=== PATIENT | female | born 1940 | race Asian ===

== ENCOUNTER 2016-09-08 08:12 | Inpatient (IN) | payer MEDICARE, BC ==
[~2016-09-08] VITALS: Ht 160 cm; Wt 72.6 kg
[2016-09-08 08:27] VITALS: BP 141/62
--- NOTE | 2016-09-08 08:50 | Emergency Room Report ---
History of Present Illness General Chief Complaint: Multiple Trauma/Fall Source: Patient, EMS Present Illness HPI Patient reports pain to the right hip and lower back area after fall She reports that she has Parkinson's and has falls somewhat frequently denies any loss of consciousness or dizziness and provides a fairly purely mechanical fall in nature Patient has pain with movement of the right leg in the right hip and lower back Denies any neuropathy she reports previous surgery in the right hip Denies any abdominal pain denies any neck pain or headache Allergies: Coded Allergies: No Known Allergies (Unverified , 09/08/16) Patient History Past Medical History: see triage record Pertinent Family History: none Reviewed Nursing Documentation: PMH: Agreed, PSxH: Agreed Nursing Documentation-PMH Past Medical History: No History, Except For Review of Systems All Other Systems: negative except mentioned in HPI Physical Exam Vital Signs Date Time Temp Pulse Resp B/P Pulse Ox O2 Delivery O2 Flow Rate FiO2 09/08/16 08:12 97.9 85 16 134/92 95 Room Air Sp02 EP Interpretation: reviewed, normal General Appearance: well appearing, no apparent distress Head: normocephalic, atraumatic Eyes: bilateral eye EOMI, bilateral eye PERRL ENT: hearing grossly normal, normal pharynx, TMs + canals normal, uvula midline Neck: full range of motion, supple, no meningismus, no bony tend Respiratory: lungs clear, normal breath sounds, no rhonchi, no respiratory distress, no retraction, no accessory muscle use Cardiovascular #1: normal peripheral pulses, regular rate, rhythm, no edema, no gallop, no JVD, no murmur Gastrointestinal: normal bowel sounds, non tender, soft, no mass, no organomegaly, non-distended, no guarding, no hernia, no pulsatile mass, no rebound Genitourinary: no CVA tenderness Musculoskeletal: other - 10 on palpation right posterior superior iliac crest region, lower L-spine on the right aspect, tender with movement of the right leg in a flexion movement Neurologic: oriented x3, responsive, sensory intact Psychiatric: mood/affect normal Skin: normal color, no rash, warm/dry, palpation normal Lymphatic: normal inspection, no adenopathy Medical Decision Making Diagnostic Impression: Primary Impression: Thoracic spine fracture Additional Impressions: Fracture of lumbar spine Rib fracture ER Course Given the patient's presentation and pain seeking she was obtained presents with a report for full specifics however there are several acute fractures no thoracic and lumbar spine region also a right-sided rib fracture Patient require further IV pain medication Orthopedics was consulted and patient requiring further inpatient care Labs Test 09/08/16 11:12 White Blood Count 6.4 K/UL (4.8-10.8) Red Blood Count 4.63 M/UL (4.20-5.40) Hemoglobin 14.5 G/DL (12.0-16.0) Hematocrit 45.3 % (37.0-47.0) Mean Corpuscular Volume 98 FL (80-99) Mean Corpuscular Hemoglobin 31.3 PG (27.0-31.0) Mean Corpuscular Hemoglobin Concent 32.0 G/DL (32.0-36.0) Red Cell Distribution Width 12.3 % (11.6-14.8) Platelet Count 294 K/UL (150-450) Mean Platelet Volume 6.0 FL (6.5-10.1) Neutrophils (%) (Auto) 65.8 % (45.0-75.0) Lymphocytes (%) (Auto) 25.5 % (20.0-45.0) Monocytes (%) (Auto) 6.2 % (1.0-10.0) Eosinophils (%) (Auto) 1.9 % (0.0-3.0) Basophils (%) (Auto) 0.7 % (0.0-2.0) Prothrombin Time 9.9 SEC (9.30-11.50) Prothromb Time International Ratio 1.0 (0.9-1.1) Activated Partial Thromboplast Time 26 SEC (23-33) Sodium Level 142 mEQ/L (135-145) Potassium Level 4.0 mEQ/L (3.4-4.9) Chloride Level 99 mEQ/L (98-107) Carbon Dioxide Level 27 mEQ/L (20-30) Anion Gap 16 (5-15) Blood Urea Nitrogen 15 mg/dL (7-23) Creatinine 0.7 mg/dL (0.5-0.9) Estimat Glomerular Filtration Rate mL/min (>60) Glucose Level 121 mg/dL (74-106) Calcium Level 9.0 mg/dL (8.6-10.2) Total Bilirubin < 0.2 mg/dL (0.0-1.2) Aspartate Amino Transf (AST/SGOT) 16 U/L (5-40) Alanine Aminotransferase (ALT/SGPT) 5 U/L (3-33) Alkaline Phosphatase 57 U/L (35-104) Total Creatine Kinase 123 U/L (26-140) Creatine Kinase MB 3.6 ng/mL (< 3.8) Creatine Kinase MB Relative Index 2.9 Troponin I < 0.30 ng/mL (<=0.30) Total Protein 6.3 g/dL (6.6-8.7) Albumin 4.1 g/dL (3.5-5.2) Globulin 2.2 g/dL Albumin/Globulin Ratio 1.8 (1.0-2.7) Rhythm Strip Diag. 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 No evidence of significant neural compromise CT pelvic: refer to L. spine Last Vital Signs Date Time Temp Pulse Resp B/P Pulse Ox O2 Delivery O2 Flow Rate FiO2 09/08/16 08:27 98.2 80 22 141/62 97 Room Air Status: improved Disposition: ADMITTED INPATIENT Condition: Improved Referrals: NOT CHOSEN IPA/,REFERRING (PCP) SKYLER HUERTA D.O. Sep 08, 2016 08:50
[2016-09-08] MEDS ORDERED: traMADol 50mg tab ORAL ONE (09:00)
--- NOTE | 2016-09-08 10:03 | Diagnostic Imaging Report ---
Indications: Pain to the right hip and lower back area of Technique: Spiral acquisitions obtained through the lumbar spine. Multiplanar reconstructions were generated. No IV contrast utilized. Total dose length product 413 mGycm. CTDIvol(s) 50 mGy Comparison: Findings: There is a nondisplaced fracture of the right 12th rib. This appears acute. There are fractures of the right transverse processes of T12, L1, L2, and L3. The L1 and L2 fractures appear to be acute. The T12 and L3 fractures are likely acute but could be older. No other acute fractures are demonstrated. There is slight anterior offset of L4 on L5 and of L5 on S1. No associated pars defect. There is an S-shaped scoliotic deformity of the lumbar spine. The remaining bony alignment is normal. The vertebral body heights are preserved. The sacrum is intact. There are old distracted ununited fractures of the left L2, L3, L4, and L5 transverse processes. At T12-L1, no significant disc narrowing, disc bulge or protrusion, spinal stenosis, or neural foraminal stenosis is demonstrated. At L1-2, there is degenerative disc narrowing with vacuum formation and subchondral cysts. No significant disc bulge or protrusion, spinal stenosis, or neural foraminal stenosis. There is bilateral facet degeneration. At L2-3, there is degenerative disc narrowing with vacuum formation. There is bilateral facet degeneration. No significant disc bulge or protrusion, spinal stenosis, or neural foraminal stenosis. At L3-4, there is degenerative disc narrowing with vacuum formation. There is posterior disc old/osteophyte complex, which does not significantly narrow the spinal canal, but does result in mild narrowing of the left neural foramen. There is severe degenerative facet disease, particularly on the left. 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 No significant disc bulge or protrusion, spinal stenosis, or neural foraminal narrowing. There is severe bilateral facet degeneration, and, as at the level above, kissing spinous processes. At L5-S1, only minimal disc narrowing. No significant disc bulge or protrusion, spinal stenosis, or neural foraminal narrowing. There is bilateral severe facet degeneration. 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 No evidence of significant neural compromise The CT scanner at [facility] is accredited by the [employer] and the scans are performed using protocols designed to limit radiation exposure to as low as reasonably achievable to attain images of sufficient resolution adequate for diagnostic evaluation.
[2016-09-08] MEDS ORDERED: Diazepam 10mg/2ml Inj IM ONE (10:15)
[2016-09-08] MEDS ORDERED: Ketorolac 30mg Inj IV ONE (11:15)
--- NOTE | 2016-09-08 11:41 | Diagnostic Imaging Report ---
Indication: Chest pain Technique: One view of the chest Comparison: 04/28/2008 Findings: Again demonstrated is a surgical clips and a surgical staple line in the left hilar region. The lungs and pleural spaces are clear. Heart size is upper limits of normal. There is thoracic scoliotic deformity again demonstrated. Impression: Findings as noted. No acute process
[2016-09-08 11:44] VITALS: BP 122/67
[2016-09-08 12:10] LABS: BASOPHILS % (AUTO) 0.7 % (0.0-2.0); EOSINOPHILS % (AUTO) 1.9 % (0.0-3.0); LYMPHOCYTES % (AUTO) 25.5 % (20.0-45.0); MEAN CORPUSCULAR HEMOGLOBIN 31.3 PG (27.0-31.0); MEAN CORPUSCULAR VOLUME 98 FL (80-99); MONOCYTES % (AUTO) 6.2 % (1.0-10.0); NEUTROPHILS % (AUTO) 65.8 % (45.0-75.0); PLATELET COUNT 294 K/UL (150-450); RED BLOOD COUNT 4.63 M/UL (4.20-5.40); RED CELL DISTRIBUTION WIDTH 12.3 % (11.6-14.8); WHITE BLOOD COUNT 6.4 K/UL (4.8-10.8)
[2016-09-08 12:21] LABS: PROTHROMBIN TIME 9.9 SEC (9.30-11.50)
[2016-09-08 12:26] LABS: ALANINE AMINOTRANSFERASE 5 U/L (3-33); ALBUMIN/GLOBULIN RATIO 1.8 (1.0-2.7); ANION GAP 16 (5-15); ASPARTATE AMINO TRANSFERASE 16 U/L (5-40); CARBON DIOXIDE 27 mEQ/L (20-30); CHLORIDE 99 mEQ/L (98-107); CREATININE 0.7 mg/dL (0.5-0.9); HEMOLYSIS 9; SODIUM 142 mEQ/L (135-145); TOTAL PROTEIN 6.3 g/dL (6.6-8.7); TROPONIN I < 0.30 ng/mL (<=0.30)
[2016-09-08 12:36] LABS: CKMB 3.6 ng/mL (< 3.8)
[2016-09-08] MEDS ORDERED: BUPROPION HCL75 MG PO (13:26)
[2016-09-08] MEDS ORDERED: SINEMET 25-1001 EAC1 ORAL (13:26)
[2016-09-08] MEDS ORDERED: VENLAFAXINE HCL25 MG ORAL (13:26)
[2016-09-08 13:33] VITALS: BP 136/52
--- NOTE | 2016-09-08 14:50 | Diagnostic Imaging Report ---
Indication: Right hip and lower back. Pain after fall Technique: Noncontrast spiral acquisitions obtained through the pelvis. Multiplanar reconstructions generated. Total dose length product 618 mGycm. CTDIvol(s) 12 mGy Comparison: None Findings: Surgical hardware is seen reducing an old healed proximal right femoral shaft fracture. Hardware appears intact and well aligned. There is no evidence of acute hip or pelvic fracture demonstrated. There is some increased attenuation of the subcutaneous fat in the right hip region. Suspect that this represents a surgical scar but could also represent an acute soft tissue contusion. There is symmetric slight increased attenuation of the posterior inferior buttock subcutaneous fat. No other evidence of soft tissue contusion or hematoma demonstrated. The included pelvic viscera are remarkable for absence of the uterus, presumably postsurgical. There is colonic diverticulosis Impression: No acute bony trauma Increased attenuation of the bilateral inferior buttock subcutaneous fat, could represent mild soft tissue contusion Evidence of prior trauma and surgery to the right femur Incidental findings of prior hysterectomy and colonic diverticulosis The CT scanner at [facility] is accredited by the [employer] and the scans are performed using protocols designed to limit radiation exposure to as low as reasonably achievable to attain images of sufficient resolution adequate for diagnostic evaluation.
[2016-09-08] MEDS ORDERED: LORazepam Inj 2mg/ml 1ml IV PRN (15:00)
[2016-09-08] MEDS ORDERED: Mylanta II UD 30ml ORAL PRN (15:00)
[2016-09-08 16:00] VITALS: BP 140/76
[2016-09-08] MEDS: Sinemet 25/100 tab ORAL SCH ×2 (16:00→18:41)
[2016-09-08] MEDS: BuPROPion 75mg Tab ORAL SCH ×2 (18:00→18:41)
--- NOTE | 2016-09-08 18:49 | History & Physical ---
History and Physical History & Physicial Dictated for Int Med-Dr Christianson no. [id number]. OMID PRESCOTT Sep 08, 2016 18:49
[2016-09-08 20:00] VITALS: BP 113/88
[2016-09-08] MEDS ORDERED: Miralax 17gm pkt ORAL PRN (21:00)
[2016-09-08] MEDS: Morphine Sulfate 2mg/ml Inj IVP PRN (21:32)
[2016-09-08] MEDS: Heparin 5000 units/ml inj SUBQ SCH (21:34)
[2016-09-08] MEDS: Zolpidem 5mg tab ORAL PRN (22:55)
--- NOTE | 2016-09-08 23:24 | Consultation ---
History of Present Illness General Chief Complaint: Multiple Trauma/Fall Present Illness Allergies: Coded Allergies: No Known Allergies (Unverified , 09/08/16) Medication History Scheduled Bupropion Hcl* (Bupropion Hcl*), 75 MG PO BID, (Reported) Carbidopa/Levodopa 25-100 Mg* (Sinemet 25-100 Mg Tablet*), 1 TAB ORAL FIVE TIMES A DAY, (Reported) Venlafaxine Hcl* (Effexor*), Unknown Dose ORAL THREE TIMES A DAY, (Reported) Patient History Healthcare decision maker Resuscitation status Advanced Directive on File No Physical Exam Last 24 Hour Vital Signs Date Time Temp Pulse Resp B/P Pulse Ox O2 Delivery O2 Flow Rate FiO2 09/08/16 22:02 97.7 09/08/16 20:00 97.7 46 16 113/88 Room Air 09/08/16 16:00 97.7 88 20 140/76 96 Room Air 09/08/16 15:14 98.2 92 22 136/112 97 Room Air 09/08/16 14:59 98.2 09/08/16 13:33 85 22 136/52 97 Room Air 09/08/16 11:44 86 22 122/67 97 Room Air 09/08/16 10:00 98.2 09/08/16 10:00 98.2 09/08/16 08:27 98.2 80 22 141/62 97 Room Air 09/08/16 08:12 97.9 85 16 134/92 95 Room Air Laboratory Tests Test 09/08/16 11:12 White Blood Count 6.4 K/UL (4.8-10.8) Red Blood Count 4.63 M/UL (4.20-5.40) Hemoglobin 14.5 G/DL (12.0-16.0) Hematocrit 45.3 % (37.0-47.0) Mean Corpuscular Volume 98 FL (80-99) Mean Corpuscular Hemoglobin 31.3 PG (27.0-31.0) H Mean Corpuscular Hemoglobin Concent 32.0 G/DL (32.0-36.0) Red Cell Distribution Width 12.3 % (11.6-14.8) Platelet Count 294 K/UL (150-450) Mean Platelet Volume 6.0 FL (6.5-10.1) L Neutrophils (%) (Auto) 65.8 % (45.0-75.0) Lymphocytes (%) (Auto) 25.5 % (20.0-45.0) Monocytes (%) (Auto) 6.2 % (1.0-10.0) Eosinophils (%) (Auto) 1.9 % (0.0-3.0) Basophils (%) (Auto) 0.7 % (0.0-2.0) Prothrombin Time 9.9 SEC (9.30-11.50) Prothromb Time International Ratio 1.0 (0.9-1.1) Activated Partial Thromboplast Time 26 SEC (23-33) Sodium Level 142 mEQ/L (135-145) Potassium Level 4.0 mEQ/L (3.4-4.9) Chloride Level 99 mEQ/L (98-107) Carbon Dioxide Level 27 mEQ/L (20-30) Anion Gap 16 (5-15) H Blood Urea Nitrogen 15 mg/dL (7-23) Creatinine 0.7 mg/dL (0.5-0.9) Estimat Glomerular Filtration Rate mL/min (>60) Glucose Level 121 mg/dL (74-106) H Calcium Level 9.0 mg/dL (8.6-10.2) Total Bilirubin < 0.2 mg/dL (0.0-1.2) Aspartate Amino Transf (AST/SGOT) 16 U/L (5-40) Alanine Aminotransferase (ALT/SGPT) 5 U/L (3-33) Alkaline Phosphatase 57 U/L (35-104) Total Creatine Kinase 123 U/L (26-140) Creatine Kinase MB 3.6 ng/mL (< 3.8) Creatine Kinase MB Relative Index 2.9 Troponin I < 0.30 ng/mL (<=0.30) Total Protein 6.3 g/dL (6.6-8.7) L Albumin 4.1 g/dL (3.5-5.2) Globulin 2.2 g/dL Albumin/Globulin Ratio 1.8 (1.0-2.7) Height (Feet): 5 Height (Inches): 3.00 Weight (Pounds): 160 Medications Current Medications Medications (Trade) Dose Ordered Sig/Digna Route PRN Reason Start Time Stop Time Status Last Admin Dose Admin Acetaminophen (Tylenol) 650 mg Q4H PRN ORAL T>100.5 09/08/16 15:00 10/08/16 14:59 Al Hydroxide/Mg Hydroxide (Mylanta II) 30 ml Q6H PRN ORAL dyspepsia 09/08/16 15:00 10/08/16 14:59 Bupropion HCl (Wellbutrin) 75 mg BID ORAL 09/08/16 18:00 10/08/16 17:59 09/08/16 18:41 Carbidopa/Levodopa (Sinemet 25/100) 1 ea FIVE TIMES A DAY ORAL 09/08/16 16:00 10/08/16 15:59 09/08/16 18:41 Carbidopa/Levodopa (Sinemet CR 50/ 200) 1 ea DAILY@2100 ORAL 09/08/16 21:00 10/08/16 20:59 09/08/16 21:32 Dextrose (Dextrose 50%) STAT PRN IV Hypoglycemia 09/08/16 15:00 10/08/16 14:59 Heparin Sodium (Porcine) (Heparin 5000 units/ml) 5,000 units EVERY 12 HOURS SUBQ 09/08/16 21:00 10/08/16 20:59 09/08/16 21:34 Lorazepam (Ativan 2mg/ml 1ml) 0.5 mg Q4H PRN IV For Anxiety 09/08/16 15:00 09/15/16 14:59 Morphine Sulfate (Morphine Sulfate) 2 mg Q4H PRN IVP For Pain 4-09/08/16 15:00 09/15/16 14:59 09/08/16 21:32 Ondansetron HCl (Zofran) 4 mg Q6H PRN IVP Nausea & Vomiting 09/08/16 15:00 10/08/16 14:59 Polyethylene Glycol (Miralax) 17 gm HSPRN PRN ORAL Constipation 09/08/16 21:00 10/08/16 20:59 Zolpidem Tartrate (Ambien) 5 mg HSPRN PRN ORAL Insomnia 09/08/16 21:00 10/08/16 20:59 09/08/16 22:55 JOE OQUENDO Sep 08, 2016 23:24
[2016-09-09] VITALS: BP 127/50
--- NOTE | 2016-09-09 01:29 | History and Physical Report ---
DATE OF ADMISSION: 09/08/[address] Christianson. CHIEF COMPLAINT: The patient is a 76-year-old female, presents with complaint of back pain and right hip pain. HISTORY OF PRESENT ILLNESS: The patient has a history of Parkinson's. The patient has a history of frequent falls. The patient states she fell while getting off of the toilet this morning. The patient struck her right hip and low back. The patient presented to [place] emergency room. The patient was admitted for lumbar spine pain and right hip pain to rule out fracture. PAST MEDICAL HISTORY: Significant for, 1. Parkinson disease. 2. Peripheral neuropathy. 3. History of lung cancer. PAST SURGICAL HISTORY: Significant for, 1. Left lobectomy secondary to lung cancer in 1977. 2. Total abdominal hysterectomy secondary to cervical cancer in 1974. 3. Right femur open reduction and internal fixation. 4. Laryngeal Enterprise-[employer] graft. CURRENT MEDICATIONS: 1. BuSpar 75 mg one tablet p.o. twice daily. 2. Carbidopa and levodopa 25/100 mg one tablet p.o. five times daily. 3. Effexor 25 mg one tablet p.o. three times daily. ALLERGIES: No known drug allergies. SOCIAL HISTORY: The patient lives with her adult son and caregivers. The patient denies tobacco or alcohol use. The patient is single. REVIEW OF SYSTEMS: Constitutional: The patient denies weight loss or weight gain. The patient denies fevers or chills. HEENT: The patient denies ear or throat pain. Cardiovascular: The patient denies palpitations or chest pain. Chest: The patient denies wheezes or shortness of breath. Abdomen: The patient denies nausea, vomiting, diarrhea, or constipation. Genitourinary: The patient denies dysuria or increased frequency of urination. Neuromuscular: The patient complains of lumbar spine pain and right hip pain as above. The patient denies seizures or generalized weakness. PHYSICAL EXAMINATION: VITAL SIGNS: Temperature 98.2 degrees, respirations 22, pulse 86, and blood pressure 122/67. GENERAL: The patient is a well-developed and well-nourished female, in no apparent distress. HEENT: Eyes, pupils are equal and responsive to light and accommodation. Extraocular movements are intact. NECK: Supple without lymphadenopathy. CHEST: Lungs are clear to auscultation bilaterally without wheezes or rales. CARDIOVASCULAR: Regular rhythm and rate. S1 and S2 normal without murmurs, rubs, or gallops. ABDOMEN: Soft, nontender, and nondistended. Positive bowel sounds. No evidence of hepatosplenomegaly. Currently, no rebound or guarding. EXTREMITIES: Negative for clubbing, cyanosis, or edema. RECTAL: Refused. GENITAL: Refused. NEUROLOGIC: Cranial nerves II through XII are grossly intact without focal deficits. Motor strength is 4/5 bilaterally. Deep tendon reflexes are 2+ plantar. LABORATORY STUDIES: WBC 6.4, hemoglobin 14.5, hematocrit 45.3, and platelets 294,000. Sodium 142, potassium 4.0, chloride 99, CO2 27, BUN 15, creatinine 0.7, and glucose 121. A right wrist series revealed a twelfth rib acute fracture, nondisplaced. Lumbar spine series revealed lumbar 1 and 2 transverse process fracture and L3 transition process fracture also T12 transition process fracture. ASSESSMENT: This is a 76-year-old female, 1. Lumbar pain . 2. Right hip pain. 3. Right twelfth rib fracture. 4. Lumbar 1 and 2 transverse process fracture. 5. T12 and L3 transition process fracture. 6. Parkinson disease. TREATMENT: 1. Lumbar pain probably secondary to acute fracture as above. An Orthopedic consultation has been obtained with Dr. Floyd Tellez. We will follow recommendations of Dr. Tellez. 2. Right twelfth rib fracture. 3. Parkinson disease. Continue carbidopa and levodopa as above. Saúl Tavarez M.D. DR: Bonita JOB#: [id number] CC:
[2016-09-09 04:00] VITALS: BP 139/77
[2016-09-09] MEDS: Morphine Sulfate 2mg/ml Inj IVP PRN ×3 (04:42→13:10)
[2016-09-09] MEDS: Sinemet 25/100 tab ORAL SCH ×5 (06:28→20:33)
[2016-09-09 08:00] VITALS: BP 135/74
[2016-09-09] MEDS: BuPROPion 75mg Tab ORAL SCH ×2 (08:44→17:59)
[2016-09-09] MEDS: Heparin 5000 units/ml inj SUBQ SCH ×2 (08:47→20:40)
[2016-09-09 10:36] LABS: BASOPHILS % (AUTO) 0.9 % (0.0-2.0); EOSINOPHILS % (AUTO) 2.4 % (0.0-3.0); LYMPHOCYTES % (AUTO) 24.8 % (20.0-45.0); MEAN CORPUSCULAR HEMOGLOBIN 31.2 PG (27.0-31.0); MEAN CORPUSCULAR HGB CONC 31.5 G/DL (32.0-36.0); MEAN CORPUSCULAR VOLUME 99 FL (80-99); MONOCYTES % (AUTO) 6.4 % (1.0-10.0); NEUTROPHILS % (AUTO) 65.5 % (45.0-75.0); PLATELET COUNT 302 K/UL (150-450); RED BLOOD COUNT 4.69 M/UL (4.20-5.40); WHITE BLOOD COUNT 7.1 K/UL (4.8-10.8)
[2016-09-09 10:53] LABS: ALANINE AMINOTRANSFERASE 5 U/L (3-33); ALBUMIN/GLOBULIN RATIO 1.4 (1.0-2.7); ANION GAP 14 (5-15); ASPARTATE AMINO TRANSFERASE 17 U/L (5-40); CALCIUM 8.8 mg/dL (8.6-10.2); CARBON DIOXIDE 27 mEQ/L (20-30); CHLORIDE 100 mEQ/L (98-107); CREATININE 0.7 mg/dL (0.5-0.9); HEMOLYSIS 6; POTASSIUM 4.2 mEQ/L (3.4-4.9); SODIUM 141 mEQ/L (135-145); TOTAL PROTEIN 6.7 g/dL (6.6-8.7)
[2016-09-09 12:14] VITALS: BP 146/74
--- NOTE | 2016-09-09 15:07 | Internal Med Progress Note ---
Subjective Physician Name Ez Christianson Attending Physician Ez Christianson MD Current Medications Medications (Trade) Dose Ordered Sig/Digna Route PRN Reason Start Time Stop Time Status Last Admin Dose Admin Acetaminophen (Tylenol) 650 mg Q4H PRN ORAL T>100.5 09/08/16 15:00 10/08/16 14:59 Al Hydroxide/Mg Hydroxide (Mylanta II) 30 ml Q6H PRN ORAL dyspepsia 09/08/16 15:00 10/08/16 14:59 Bupropion HCl (Wellbutrin) 75 mg BID ORAL 09/08/16 18:00 10/08/16 17:59 09/09/16 08:44 Carbidopa/Levodopa (Sinemet 25/100) 1 ea FIVE TIMES A DAY ORAL 09/08/16 16:00 10/08/16 15:59 09/09/16 13:09 Carbidopa/Levodopa (Sinemet CR 50/ 200) 1 ea DAILY@2100 ORAL 09/08/16 21:00 10/08/16 20:59 09/08/16 21:32 Dextrose (Dextrose 50%) STAT PRN IV Hypoglycemia 09/08/16 15:00 10/08/16 14:59 Heparin Sodium (Porcine) (Heparin 5000 units/ml) 5,000 units EVERY 12 HOURS SUBQ 09/08/16 21:00 10/08/16 20:59 09/09/16 08:47 Lorazepam (Ativan 2mg/ml 1ml) 0.5 mg Q4H PRN IV For Anxiety 09/08/16 15:00 09/15/16 14:59 Morphine Sulfate (Morphine Sulfate) 2 mg Q4H PRN IVP For Pain 4-09/08/16 15:00 09/15/16 14:59 09/09/16 13:10 Ondansetron HCl (Zofran) 4 mg Q6H PRN IVP Nausea & Vomiting 09/08/16 15:00 10/08/16 14:59 Polyethylene Glycol (Miralax) 17 gm HSPRN PRN ORAL Constipation 09/08/16 21:00 10/08/16 20:59 Zolpidem Tartrate (Ambien) 5 mg HSPRN PRN ORAL Insomnia 09/08/16 21:00 10/08/16 20:59 09/08/16 22:55 Allergies: Coded Allergies: No Known Allergies (Unverified , 09/08/16) Subjective awake, alert, responsive, C/O severe back pain most likely after LE's movement. Objective Last Vital Signs Date Time Temp Pulse Resp B/P Pulse Ox O2 Delivery O2 Flow Rate FiO2 09/09/16 12:14 97.9 80 20 146/74 96 Room Air Laboratory Tests Test 09/09/16 10:25 White Blood Count 7.1 K/UL (4.8-10.8) Red Blood Count 4.69 M/UL (4.20-5.40) Hemoglobin 14.6 G/DL (12.0-16.0) Hematocrit 46.4 % (37.0-47.0) Mean Corpuscular Volume 99 FL (80-99) Mean Corpuscular Hemoglobin 31.2 PG (27.0-31.0) H Mean Corpuscular Hemoglobin Concent 31.5 G/DL (32.0-36.0) L Red Cell Distribution Width 12.0 % (11.6-14.8) Platelet Count 302 K/UL (150-450) Mean Platelet Volume 6.0 FL (6.5-10.1) L Neutrophils (%) (Auto) 65.5 % (45.0-75.0) Lymphocytes (%) (Auto) 24.8 % (20.0-45.0) Monocytes (%) (Auto) 6.4 % (1.0-10.0) Eosinophils (%) (Auto) 2.4 % (0.0-3.0) Basophils (%) (Auto) 0.9 % (0.0-2.0) Sodium Level 141 mEQ/L (135-145) Potassium Level 4.2 mEQ/L (3.4-4.9) Chloride Level 100 mEQ/L (98-107) Carbon Dioxide Level 27 mEQ/L (20-30) Anion Gap 14 (5-15) Blood Urea Nitrogen 16 mg/dL (7-23) Creatinine 0.7 mg/dL (0.5-0.9) Estimat Glomerular Filtration Rate mL/min (>60) Glucose Level 101 mg/dL (74-106) Calcium Level 8.8 mg/dL (8.6-10.2) Total Bilirubin < 0.2 mg/dL (0.0-1.2) Aspartate Amino Transf (AST/SGOT) 17 U/L (5-40) Alanine Aminotransferase (ALT/SGPT) 5 U/L (3-33) Alkaline Phosphatase 60 U/L (35-104) Total Protein 6.7 g/dL (6.6-8.7) Albumin 4.0 g/dL (3.5-5.2) Globulin 2.7 g/dL Albumin/Globulin Ratio 1.4 (1.0-2.7) Intake and Output 09/08/16 09/09/16 19:00 07:00 Intake Total 480 ml Output Total 1050 ml Balance -570 ml Intake Oral 480 ml Output Urine Total 1050 ml Objective Physical Exam General: No acute distress, awake and alert HEENT: NCAT, sclera anicteric, PERRL, EOMI. Neck: Supple, no significant jugular venous distention, Lungs: Good inspiratory effort, no accessory muscle use, clear to auscultation bilaterally, no Wheeze or Rales. Heart: Regular rate and rhythm, normal S1/S2, no murmurs Abdomen: soft, nontender, nondistended. Normoactive bowel sounds. / Rectal: Refused and deferred. Extremities: No Cyanosis , clubbing or edema. Neuro: A&O x 3, Able to move all extremities slowly. Skin: warm, no rashes or lesions Psych: Normal mood and affect Assessment/Plan Assessment/Plan 1. Fall with back pain s/p Lumbar 1 and 2 transverse process fracture and T12 and L3 transition process fracture. 2. Right twelfth rib fracture. 3. Parkinson disease. TREATMENT: Orthopedic consultation has been obtained with Dr. Floyd Tellez. Spine consultation has been obtained with Dr. Grossman. Pain medication DVT prophylaxis with Heparin SQ Ez Christianson MD Sep 09, 2016 15:07
--- NOTE | 2016-09-09 15:08 | Consultation ---
DATE OF CONSULTATION: 09/08/2016 HISTORY OF PRESENT ILLNESS: The patient is a pleasant female who had a history of Parkinson's. She subsequently has had some recent falls and has been having difficulty ambulating. She denies any bowel or bladder issues. She was brought to the emergency room, where a CT scan showed some acute vertebral body fractures and therefore she is admitted for further care and recommendations. Orthopedic consultation was obtained for further recommendation of the lumbar spine. PAST MEDICAL HISTORY: Not listed. MEDICATIONS: Reviewed per the intake chart. ALLERGIES: None. SOCIAL HISTORY: The patient does not smoke or drink. FAMILY HISTORY: Noncontributory. PHYSICAL EXAMINATION: The patient is alert and oriented. She is tender to palpation over the right posterior iliac crest as well as lumbar spine. There is some pain along the lumbar spine. no pain with internal external rotation of the right leg. Posterior calf is soft. Neurovascular is normal. Imaging studies showed what appears to be acute fracture at L1 and L2 transverse process. This was a nondisplaced fracture of the right sacral ala. ASSESSMENT: L1-L2 transverse process fracture Sacral ala Fracture DISCUSSION: At this point, she does have evidence of some vertebral body or transverse process/lumbar spine as well as sacral ala fracture , which given her history of multiple falls most likely some of these are acute and some of these are chronic. At this point, she denies any numbness to the lower extremity. What I am going to do is go ahead and get her PT/OT and she needs appropriate pain management. Based on PT recommendations, discharge planning can be started. These fractures are treated nonoperatively. I do not recommend any type of bracing though she has continued difficulty mobilizing then that may be an option. Floyd Tellez M.D. DR: Christine JOB#: [id number] CC: JACKY
[2016-09-09 16:00] VITALS: BP 143/74
[2016-09-09] MEDS: Morphine Sulfate 4mg/ml Inj IVP PRN ×2 (16:47→20:50)
[2016-09-09] MEDS: MS Contin 15mg tab ORAL SCH (18:01)
--- NOTE | 2016-09-09 19:47 | Consultation ---
Consult Note Consult Note full note dict Assessment/Plan recommend MRI L spine CHRISTEN MARINO Sep 09, 2016 19:47
[2016-09-09 20:00] VITALS: BP 122/61
--- NOTE | 2016-09-09 20:33 | Pulmonology Progress Note ---
Subjective Allergies: Coded Allergies: No Known Allergies (Unverified , 09/08/16) Objective Last 24 Hour Vital Signs Date Time Temp Pulse Resp B/P Pulse Ox O2 Delivery O2 Flow Rate FiO2 09/09/16 16:00 97.9 85 20 143/74 96 Room Air 09/09/16 12:14 97.9 80 20 146/74 96 Room Air 09/09/16 08:00 97.9 84 17 135/74 96 Room Air 09/09/16 04:00 97.9 84 18 139/77 97 Room Air 09/09/16 00:00 97.9 89 18 127/50 98 Room Air 09/08/16 22:02 97.7 Intake and Output 09/08/16 09/09/16 19:00 07:00 Intake Total 480 ml Output Total 1050 ml Balance -570 ml Intake Oral 480 ml Output Urine Total 1050 ml Laboratory Tests 09/09/16 10:25: White Blood Count 7.1, Red Blood Count 4.69, Hemoglobin 14.6, Hematocrit 46.4, Mean Corpuscular Volume 99, Mean Corpuscular Hemoglobin 31.2H, Mean Corpuscular Hemoglobin Concent 31.5L, Red Cell Distribution Width 12.0, Platelet Count 302, Mean Platelet Volume 6.0L, Neutrophils (%) (Auto) 65.5, Lymphocytes (%) (Auto) 24.8, Monocytes (%) (Auto) 6.4, Eosinophils (%) (Auto) 2.4, Basophils (%) (Auto ) 0.9, Sodium Level 141, Potassium Level 4.2, Chloride Level 100, Carbon Dioxide Level 27, Anion Gap 14, Blood Urea Nitrogen 16, Creatinine 0.7, Estimat Glomerular Filtration Rate , Glucose Level 101, Calcium Level 8.8, Total Bilirubin < 0.2, Aspartate Amino Transf (AST/SGOT) 17, Alanine Aminotransferase (ALT/SGPT) 5, Alkaline Phosphatase 60, Total Protein 6.7, Albumin 4.0, Globulin 2.7, Albumin/Globulin Ratio 1.4 Current Medications Medications (Trade) Dose Ordered Sig/Digna Route PRN Reason Start Time Stop Time Status Last Admin Dose Admin Acetaminophen (Tylenol) 650 mg Q4H PRN ORAL T>100.5 09/08/16 15:00 10/08/16 14:59 Al Hydroxide/Mg Hydroxide (Mylanta II) 30 ml Q6H PRN ORAL dyspepsia 09/08/16 15:00 10/08/16 14:59 Bupropion HCl (Wellbutrin) 75 mg BID ORAL 09/08/16 18:00 10/08/16 17:59 09/09/16 17:59 Carbidopa/Levodopa (Sinemet 25/100) 1 ea FIVE TIMES A DAY ORAL 09/08/16 16:00 10/08/16 15:59 09/09/16 16:10 Carbidopa/Levodopa (Sinemet CR 50/ 200) 1 ea DAILY@2100 ORAL 09/08/16 21:00 10/08/16 20:59 09/08/16 21:32 Dextrose (Dextrose 50%) STAT PRN IV Hypoglycemia 09/08/16 15:00 10/08/16 14:59 Gabapentin (Neurontin) 100 mg THREE TIMES A DAY ORAL 09/09/16 18:00 10/09/16 17:59 09/09/16 18:02 Heparin Sodium (Porcine) (Heparin 5000 units/ml) 5,000 units EVERY 12 HOURS SUBQ 09/08/16 21:00 10/08/16 20:59 09/09/16 08:47 Lorazepam (Ativan 2mg/ml 1ml) 0.5 mg Q4H PRN IV For Anxiety 09/08/16 15:00 09/15/16 14:59 Morphine Sulfate (MS Contin) 15 mg Q12HR@0600,1800 ORAL 09/09/16 18:00 09/16/16 17:59 09/09/16 18:01 Morphine Sulfate (Morphine Sulfate) 2 mg Q4H PRN IVP For Pain 4-09/08/16 15:00 09/15/16 14:59 09/09/16 13:10 Morphine Sulfate (Morphine Sulfate) 4 mg Q4H PRN IVP For Pain 7-09/09/16 15:30 09/16/16 15:29 09/09/16 16:47 Ondansetron HCl (Zofran) 4 mg Q6H PRN IVP Nausea & Vomiting 09/08/16 15:00 10/08/16 14:59 Polyethylene Glycol (Miralax) 17 gm HSPRN PRN ORAL Constipation 09/08/16 21:00 10/08/16 20:59 Venlafaxine HCl (Effexor) 75 mg DAILY ORAL 09/09/16 21:00 10/09/16 20:59 UNV Zolpidem Tartrate (Ambien) 5 mg HSPRN PRN ORAL Insomnia 09/08/16 21:00 10/08/16 20:59 09/08/16 22:55 JOE OQUENDO Sep 09, 2016 20:33
[2016-09-09] MEDS ORDERED: EFFEXOR XR75 MG ORAL (20:45)
[2016-09-09] MEDS ORDERED: Venlafaxine 25mg tab ORAL SCH (21:00)
[2016-09-09] MEDS: Zolpidem 5mg tab ORAL PRN (22:21)
[2016-09-10] VITALS: BP 139/66
--- NOTE | 2016-09-10 00:38 | Consultation ---
DATE OF CONSULTATION: 09/09/2016 SPINE SURGICAL CONSULTATION CONSULTING PHYSICIAN: Yong Grossman M.D. REFERRING PHYSICIAN: Ez Christianson M.D. REASON FOR CONSULTATION: Back pain and history of spinal fracture. HISTORY OF PRESENT ILLNESS: The patient is a very pleasant 76-year-old woman with long-standing history of problems with regards to her lower back with history of sciatica for many years. Approximately two years ago, she did undergo series of lumbar epidural injections with reasonably good relief of her radiculopathic pain. She also does have history of parkinsonism. She sustained a ground level fall, on or about 09/08/2016. This resulted in an admission through the emergency room and admission to the hospital after fractures were identified on the CT scan. The patient currently denies any hip pain. She describes back pain in the mid lower back with no radiation into the lower extremities. No problems with bowel or bladder dysfunction. PAST MEDICAL HISTORY: Significant for Parkinson disease, peripheral neuropathy, and history of lung cancer. PAST SURGICAL HISTORY: 1. History of left-sided lobectomy secondary to lung cancer. 2. History of abdominal hysterectomy secondary to cervical cancer in 1974. 3. History of ORIF for hip fracture as well as Laryngeal [place]-Jj graft. CURRENT MEDICATIONS: 1. BuSpar. 2. Carbidopa and levodopa. 3. Effexor. ALLERGIES: No known drug allergies. PHYSICAL EXAMINATION: GENERAL: The patient is examined while lying flat in the hospital bed. She is able to be log rolled. She does describe tenderness from the T12 through L3 levels midline and bilaterally, worse on the right than on the left. EXTREMITIES: Examination of lower extremities demonstrate motor strength testing to be 5/5 with no clear evidence of localizing findings or asymmetric weakness. Reflexes are symmetrically diminished in both lower extremities. Sensation is intact to light touch in both lower extremities throughout. Straight leg raise negative bilaterally. CT scan of the lumbar spine. CT scan was personally reviewed by myself which confirms a degenerative scoliosis of the lumbar spine. There is evidence of grade 1 anterolisthesis at L5-S1 and L4-L5. There is vacuum phenomenon at L1-L2, L2-L3, L3-L4, and L4-L5. There is advanced facet degenerative changes throughout the entirety of the lumbar spine. There is evidence of an acute transverse process fracture at L1 and L2 on the left side. There is chronic fracture at T12 and L3 on the right side. There is questionable chronic fractures of the contralateral left side. There is evidence of vacuum phenomenon throughout the facet joints. Difficult to assess foraminal or central stenosis based on CT criteria; however, there is a strong suggestion of foraminal stenosis at L3-L4, L4-L5, and even L2-L3 levels primarily on the left side. There is evidence of advanced discogenic collapse at L1-L2, L2-L3, and L3-L4 levels. DIAGNOSES: 1. Transverse process fracture, acute at L1 and L2, right side. 2. Subacute fractures at T12 and L3, right side. 3. Multilevel lumbar spondylosis with degenerative scoliosis and presumed foraminal stenosis. PLAN: At this point, I have recommended that the patient should undergo an MRI scan of the lumbar spine to rule out occult fracture within the vertebral bodies and/or interspinous ligaments. TP fractures may be associated with ligamentous instability. If there is no evidence of ligamentous instability, then physical therapy can be initiated. Yong Grossman M.D. DR: ANGY JOB#: [id number] CC: JACKY
[2016-09-10] MEDS: Morphine Sulfate 4mg/ml Inj IVP PRN ×4 (01:18→20:21)
[2016-09-10 04:00] VITALS: BP 129/72
[2016-09-10] MEDS: MS Contin 15mg tab ORAL SCH ×2 (06:42→18:00)
[2016-09-10] MEDS: Sinemet 25/100 tab ORAL SCH ×5 (06:42→18:00)
[2016-09-10 08:10] VITALS: BP 131/68
[2016-09-10] MEDS: BuPROPion 75mg Tab ORAL SCH ×2 (08:41→17:59)
[2016-09-10] MEDS: Venlafaxine XR 75mg cap ORAL SCH (08:42)
[2016-09-10] MEDS: Heparin 5000 units/ml inj SUBQ SCH ×2 (08:47→20:30)
[2016-09-10 12:00] VITALS: BP 132/70
--- NOTE | 2016-09-10 15:36 | Internal Med Progress Note ---
Subjective Date of Service: Sep 10, 2016 Physician Name Saúl Prescott Attending Physician Ez Christianson MD Current Medications Medications (Trade) Dose Ordered Sig/Digna Route PRN Reason Start Time Stop Time Status Last Admin Dose Admin Acetaminophen (Tylenol) 650 mg Q4H PRN ORAL T>100.5 09/08/16 15:00 10/08/16 14:59 Al Hydroxide/Mg Hydroxide (Mylanta II) 30 ml Q6H PRN ORAL dyspepsia 09/08/16 15:00 10/08/16 14:59 Bupropion HCl (Wellbutrin) 75 mg BID ORAL 09/08/16 18:00 10/08/16 17:59 09/10/16 08:41 Carbidopa/Levodopa (Sinemet 25/100) 1 ea FIVE TIMES A DAY ORAL 09/08/16 16:00 10/08/16 15:59 09/10/16 12:30 Carbidopa/Levodopa (Sinemet CR 50/ 200) 1 ea DAILY@2100 ORAL 09/08/16 21:00 10/08/16 20:59 09/09/16 20:33 Dextrose (Dextrose 50%) STAT PRN IV Hypoglycemia 09/08/16 15:00 10/08/16 14:59 Gabapentin (Neurontin) 100 mg THREE TIMES A DAY ORAL 09/09/16 18:00 10/09/16 17:59 09/10/16 12:29 Heparin Sodium (Porcine) (Heparin 5000 units/ml) 5,000 units EVERY 12 HOURS SUBQ 09/08/16 21:00 10/08/16 20:59 09/10/16 08:47 Lorazepam (Ativan 2mg/ml 1ml) 0.5 mg Q4H PRN IV For Anxiety 09/08/16 15:00 09/15/16 14:59 Morphine Sulfate (MS Contin) 15 mg Q12HR@0600,1800 ORAL 09/09/16 18:00 09/16/16 17:59 09/10/16 06:42 Morphine Sulfate (Morphine Sulfate) 2 mg Q4H PRN IVP For Pain 4-6 09/08/16 15:00 09/15/16 14:59 09/09/16 13:10 Morphine Sulfate (Morphine Sulfate) 4 mg Q4H PRN IVP For Pain 7-09/09/16 15:30 09/16/16 15:29 09/10/16 14:52 Ondansetron HCl (Zofran) 4 mg Q6H PRN IVP Nausea & Vomiting 09/08/16 15:00 10/08/16 14:59 Polyethylene Glycol (Miralax) 17 gm HSPRN PRN ORAL Constipation 09/08/16 21:00 10/08/16 20:59 Venlafaxine HCl (Effexor-XR) 75 mg DAILY ORAL 09/10/16 09:00 10/10/16 08:59 09/10/16 08:42 Zolpidem Tartrate (Ambien) 5 mg HSPRN PRN ORAL Insomnia 09/08/16 21:00 10/08/16 20:59 09/09/16 22:21 Allergies: Coded Allergies: No Known Allergies (Unverified , 09/08/16) ROS Limited/Unobtainable: No Constitutional: Reports: no symptoms HEENT: Reports: no symptoms Cardiovascular: Reports: no symptoms Respiratory: Reports: no symptoms Gastrointestinal/Abdominal: Reports: no symptoms Genitourinary: Reports: no symptoms Neurologic/Psychiatric: Reports: other - back pain and hip pain Subjective 76 YO F admitted with back and hip pain; S/P fall. Await MRI lumbar spine. Cover for Int Med-Dr Christianson. Objective Last Vital Signs Date Time Temp Pulse Resp B/P Pulse Ox O2 Delivery O2 Flow Rate FiO2 09/10/16 12:00 97.9 87 18 132/70 94 Room Air Intake and Output 09/09/16 09/10/16 19:00 07:00 Intake Total 600 ml 240 ml Output Total 650 ml 950 ml Balance -50 ml -710 ml Intake Oral 600 ml 240 ml Output Urine Total 650 ml 950 ml Objective General: alert, cooperative, no distress, appears stated age Head: normocephalic, without obvious abnormality, atraumatic Eyes: conjunctivae/corneas clear. PERRL, EOM's intact Throat: lips, mucosa, and tongue normal. MMM Neck: supple, symmetrical, trachea midline, and no JVD Lungs: clear to auscultation bilaterally Heart: regular rate and rhythm, S1, S2 normal, no murmur, click, rub or gallop Abdomen: soft, non-tender, non-distended, bowel sounds normal; no masses or organomegaly Extremities: extremities normal, atraumatic, no cyanosis or edema Pulses: 2+ and symmetric Skin: skin color, texture, turgor normal; no rashes or lesions Neurologic: grossly normal, no focal deficits Assessment/Plan Problem List: (1) Lumbar pain (2) Hip pain Assessment & Plan: See ortho note. (3) Parkinson disease Assessment & Plan: Continue sinemet (4) Rib fracture (5) Thoracic spine fracture Assessment & Plan: See ortho note. See spine surgery note. (6) Fracture of lumbar spine Assessment & Plan: See spine consult note. Await MRI lumbar spine. Status: not improved SAÚL PRESCOTT Sep 10, 2016 15:36
[2016-09-10 16:00] VITALS: BP 143/66
[2016-09-10 20:00] VITALS: BP 133/55
--- NOTE | 2016-09-10 23:23 | Pulmonology Progress Note ---
Subjective Allergies: Coded Allergies: No Known Allergies (Unverified , 09/08/16) Objective Last 24 Hour Vital Signs Date Time Temp Pulse Resp B/P Pulse Ox O2 Delivery O2 Flow Rate FiO2 09/10/16 20:00 97.7 90 19 133/55 93 Room Air 09/10/16 16:00 96.8 85 20 143/66 94 Room Air 09/10/16 12:00 97.9 87 18 132/70 94 Room Air 09/10/16 08:20 97.7 09/10/16 08:10 97.7 82 18 131/68 95 Room Air 09/10/16 07:41 97.7 09/10/16 04:00 97.7 82 18 129/72 95 Room Air 09/10/16 00:00 97.3 83 21 139/66 95 Room Air Intake and Output 09/09/16 09/10/16 19:00 07:00 Intake Total 600 ml 240 ml Output Total 650 ml 950 ml Balance -50 ml -710 ml Intake Oral 600 ml 240 ml Output Urine Total 650 ml 950 ml Current Medications Medications (Trade) Dose Ordered Sig/Digna Route PRN Reason Start Time Stop Time Status Last Admin Dose Admin Acetaminophen (Tylenol) 650 mg Q4H PRN ORAL T>100.5 09/08/16 15:00 10/08/16 14:59 Al Hydroxide/Mg Hydroxide (Mylanta II) 30 ml Q6H PRN ORAL dyspepsia 09/08/16 15:00 10/08/16 14:59 Bupropion HCl (Wellbutrin) 75 mg BID ORAL 09/08/16 18:00 10/08/16 17:59 09/10/16 17:59 Carbidopa/Levodopa (Sinemet 25/100) 1 ea FIVE TIMES A DAY ORAL 09/08/16 16:00 10/08/16 15:59 09/10/16 18:00 Carbidopa/Levodopa (Sinemet CR 50/ 200) 1 ea DAILY@2100 ORAL 09/08/16 21:00 10/08/16 20:59 09/10/16 20:22 Dextrose (Dextrose 50%) STAT PRN IV Hypoglycemia 09/08/16 15:00 10/08/16 14:59 Gabapentin (Neurontin) 100 mg THREE TIMES A DAY ORAL 09/09/16 18:00 10/09/16 17:59 09/10/16 17:59 Heparin Sodium (Porcine) (Heparin 5000 units/ml) 5,000 units EVERY 12 HOURS SUBQ 09/08/16 21:00 10/08/16 20:59 09/10/16 20:30 Lorazepam (Ativan 2mg/ml 1ml) 0.5 mg Q4H PRN IV For Anxiety 09/08/16 15:00 09/15/16 14:59 Morphine Sulfate (MS Contin) 15 mg Q12HR@0600,1800 ORAL 09/09/16 18:00 09/16/16 17:59 09/10/16 18:00 Morphine Sulfate (Morphine Sulfate) 2 mg Q4H PRN IVP For Pain 4-09/08/16 15:00 09/15/16 14:59 09/09/16 13:10 Morphine Sulfate (Morphine Sulfate) 4 mg Q4H PRN IVP For Pain 7-09/09/16 15:30 09/16/16 15:29 09/10/16 20:21 Ondansetron HCl (Zofran) 4 mg Q6H PRN IVP Nausea & Vomiting 09/08/16 15:00 10/08/16 14:59 Polyethylene Glycol (Miralax) 17 gm HSPRN PRN ORAL Constipation 09/08/16 21:00 10/08/16 20:59 Venlafaxine HCl (Effexor-XR) 75 mg DAILY ORAL 09/10/16 09:00 10/10/16 08:59 09/10/16 08:42 Zolpidem Tartrate (Ambien) 5 mg HSPRN PRN ORAL Insomnia 09/08/16 21:00 10/08/16 20:59 09/09/16 22:21 JOE OQUENDO Sep 10, 2016 23:23
[2016-09-11] VITALS: BP 136/80
[2016-09-11] MEDS: Morphine Sulfate 4mg/ml Inj IVP PRN ×4 (00:28→13:39)
[2016-09-11 04:00] VITALS: BP 120/64
[2016-09-11] MEDS: Sinemet 25/100 tab ORAL SCH ×5 (05:55→18:39)
[2016-09-11] MEDS: MS Contin 15mg tab ORAL SCH ×2 (05:56→16:57)
[2016-09-11 07:05] LABS: ANION GAP 11 (5-15); CALCIUM 9.3 mg/dL (8.6-10.2); CARBON DIOXIDE 31 mEQ/L (20-30); CHLORIDE 99 mEQ/L (98-107); CREATININE 0.7 mg/dL (0.5-0.9); HEMOLYSIS 4; POTASSIUM 4.2 mEQ/L (3.4-4.9); SODIUM 141 mEQ/L (135-145)
[2016-09-11 07:32] LABS: BASOPHILS % (AUTO) 0.9 % (0.0-2.0); LYMPHOCYTES % (AUTO) 30.2 % (20.0-45.0); MEAN CORPUSCULAR HEMOGLOBIN 32.3 PG (27.0-31.0); MEAN CORPUSCULAR HGB CONC 32.5 G/DL (32.0-36.0); MEAN CORPUSCULAR VOLUME 99 FL (80-99); MEAN PLATELET VOLUME 6.2 FL (6.5-10.1); MONOCYTES % (AUTO) 8.8 % (1.0-10.0); NEUTROPHILS % (AUTO) 57.1 % (45.0-75.0); PLATELET COUNT 294 K/UL (150-450); RED BLOOD COUNT 4.55 M/UL (4.20-5.40); RED CELL DISTRIBUTION WIDTH 12.2 % (11.6-14.8)
[2016-09-11 08:34] VITALS: BP 115/65
[2016-09-11] MEDS: BuPROPion 75mg Tab ORAL SCH ×2 (08:41→16:56)
[2016-09-11] MEDS: Venlafaxine XR 75mg cap ORAL SCH (08:41)
[2016-09-11] MEDS: Heparin 5000 units/ml inj SUBQ SCH ×2 (08:42→20:24)
[2016-09-11 12:00] VITALS: BP 137/60
--- NOTE | 2016-09-11 15:56 | Internal Med Progress Note ---
Subjective Date of Service: Sep 11, 2016 Physician Name TavarezSaúl brandt Attending Physician Ez Christianson MD Current Medications Medications (Trade) Dose Ordered Sig/Digna Route PRN Reason Start Time Stop Time Status Last Admin Dose Admin Acetaminophen (Tylenol) 650 mg Q4H PRN ORAL T>100.5 09/08/16 15:00 10/08/16 14:59 Al Hydroxide/Mg Hydroxide (Mylanta II) 30 ml Q6H PRN ORAL dyspepsia 09/08/16 15:00 10/08/16 14:59 Bupropion HCl (Wellbutrin) 75 mg BID ORAL 09/08/16 18:00 10/08/16 17:59 09/11/16 08:41 Carbidopa/Levodopa (Sinemet 25/100) 1 ea FIVE TIMES A DAY ORAL 09/08/16 16:00 10/08/16 15:59 09/11/16 13:39 Carbidopa/Levodopa (Sinemet CR 50/ 200) 1 ea DAILY@2100 ORAL 09/08/16 21:00 10/08/16 20:59 09/10/16 20:22 Dextrose (Dextrose 50%) STAT PRN IV Hypoglycemia 09/08/16 15:00 10/08/16 14:59 Gabapentin (Neurontin) 100 mg THREE TIMES A DAY ORAL 09/09/16 18:00 10/09/16 17:59 09/11/16 13:39 Heparin Sodium (Porcine) (Heparin 5000 units/ml) 5,000 units EVERY 12 HOURS SUBQ 09/08/16 21:00 10/08/16 20:59 09/11/16 08:42 Latanoprost (Xalatan) 1 drop QHS BOTH EYES 09/11/16 21:00 10/11/16 20:59 Lorazepam (Ativan 2mg/ml 1ml) 0.5 mg Q4H PRN IV For Anxiety 09/08/16 15:00 09/15/16 14:59 Morphine Sulfate (MS Contin) 15 mg Q12HR@0600,1800 ORAL 09/09/16 18:00 09/16/16 17:59 09/11/16 05:56 Morphine Sulfate (Morphine Sulfate) 2 mg Q4H PRN IVP For Pain 4-6 09/08/16 15:00 09/15/16 14:59 09/09/16 13:10 Morphine Sulfate (Morphine Sulfate) 4 mg Q4H PRN IVP For Pain 7-10 09/09/16 15:30 09/16/16 15:29 09/11/16 13:39 Ondansetron HCl (Zofran) 4 mg Q6H PRN IVP Nausea & Vomiting 09/08/16 15:00 10/08/16 14:59 Polyethylene Glycol (Miralax) 17 gm HSPRN PRN ORAL Constipation 09/08/16 21:00 10/08/16 20:59 Venlafaxine HCl (Effexor-XR) 75 mg DAILY ORAL 09/10/16 09:00 10/10/16 08:59 09/11/16 08:41 Zolpidem Tartrate (Ambien) 5 mg HSPRN PRN ORAL Insomnia 09/08/16 21:00 10/08/16 20:59 09/09/16 22:21 Allergies: Coded Allergies: No Known Allergies (Unverified , 09/08/16) ROS Limited/Unobtainable: No Constitutional: Reports: no symptoms HEENT: Reports: no symptoms Cardiovascular: Reports: no symptoms Respiratory: Reports: no symptoms Gastrointestinal/Abdominal: Reports: no symptoms Genitourinary: Reports: no symptoms Neurologic/Psychiatric: Reports: no symptoms Subjective 76 YO F admitted with back and hip pain; S/P fall. Await MRI lumbar spine. Cover for [facility] Med-Dr Christianson. Objective Last Vital Signs Date Time Temp Pulse Resp B/P Pulse Ox O2 Delivery O2 Flow Rate FiO2 09/11/16 12:00 98.0 93 20 137/60 95 Room Air Laboratory Tests Test 09/11/16 05:50 White Blood Count 7.0 K/UL (4.8-10.8) Red Blood Count 4.55 M/UL (4.20-5.40) Hemoglobin 14.7 G/DL (12.0-16.0) Hematocrit 45.2 % (37.0-47.0) Mean Corpuscular Volume 99 FL (80-99) Mean Corpuscular Hemoglobin 32.3 PG (27.0-31.0) H Mean Corpuscular Hemoglobin Concent 32.5 G/DL (32.0-36.0) Red Cell Distribution Width 12.2 % (11.6-14.8) Platelet Count 294 K/UL (150-450) Mean Platelet Volume 6.2 FL (6.5-10.1) L Neutrophils (%) (Auto) 57.1 % (45.0-75.0) Lymphocytes (%) (Auto) 30.2 % (20.0-45.0) Monocytes (%) (Auto) 8.8 % (1.0-10.0) Eosinophils (%) (Auto) 3.0 % (0.0-3.0) Basophils (%) (Auto) 0.9 % (0.0-2.0) Sodium Level 141 mEQ/L (135-145) Potassium Level 4.2 mEQ/L (3.4-4.9) Chloride Level 99 mEQ/L (98-107) Carbon Dioxide Level 31 mEQ/L (20-30) H Anion Gap 11 (5-15) Blood Urea Nitrogen 12 mg/dL (7-23) Creatinine 0.7 mg/dL (0.5-0.9) Estimat Glomerular Filtration Rate mL/min (>60) Glucose Level 105 mg/dL (74-106) Calcium Level 9.3 mg/dL (8.6-10.2) Intake and Output 09/10/16 09/11/16 19:00 07:00 Intake Total 720 ml 720 ml Output Total 600 ml 1100 ml Balance 120 ml -380 ml Intake Oral 720 ml 720 ml Output Urine Total 600 ml 1100 ml Objective General: alert, cooperative, no distress, appears stated age Head: normocephalic, without obvious abnormality, atraumatic Eyes: conjunctivae/corneas clear. PERRL, EOM's intact Throat: lips, mucosa, and tongue normal. MMM Neck: supple, symmetrical, trachea midline, and no JVD Lungs: clear to auscultation bilaterally Heart: regular rate and rhythm, S1, S2 normal, no murmur, click, rub or gallop Abdomen: soft, non-tender, non-distended, bowel sounds normal; no masses or organomegaly Extremities: extremities normal, atraumatic, no cyanosis or edema Pulses: 2+ and symmetric Skin: skin color, texture, turgor normal; no rashes or lesions Neurologic: grossly normal, no focal deficits Assessment/Plan Problem List: (1) Lumbar pain (2) Hip pain Assessment & Plan: See ortho note. (3) Parkinson disease Assessment & Plan: Continue sinemet (4) Rib fracture (5) Thoracic spine fracture Assessment & Plan: See ortho note. See spine surgery note. (6) Fracture of lumbar spine Assessment & Plan: See spine consult note. Await MRI lumbar spine. Status: not improved SAÚL TAVAREZ Sep 11, 2016 15:56
[2016-09-11 16:26] VITALS: BP 137/69
[2016-09-11 20:00] VITALS: BP 139/76
[2016-09-12] VITALS: BP 109/66
[2016-09-12] MEDS: Morphine Sulfate 4mg/ml Inj IVP PRN ×3 (00:30→22:53)
[2016-09-12 04:00] VITALS: BP 117/64
[2016-09-12] MEDS: Sinemet 25/100 tab ORAL SCH ×5 (06:21→19:09)
[2016-09-12] MEDS: MS Contin 15mg tab ORAL SCH ×2 (06:22→17:22)
[2016-09-12 07:16] LABS: EOSINOPHILS % (AUTO) 3.3 % (0.0-3.0); LYMPHOCYTES % (AUTO) 38.4 % (20.0-45.0); MEAN CORPUSCULAR HEMOGLOBIN 31.7 PG (27.0-31.0); MEAN CORPUSCULAR HGB CONC 32.1 G/DL (32.0-36.0); MEAN CORPUSCULAR VOLUME 99 FL (80-99); NEUTROPHILS % (AUTO) 47.3 % (45.0-75.0); PLATELET COUNT 292 K/UL (150-450); RED BLOOD COUNT 4.74 M/UL (4.20-5.40); RED CELL DISTRIBUTION WIDTH 11.9 % (11.6-14.8); WHITE BLOOD COUNT 6.7 K/UL (4.8-10.8)
[2016-09-12 07:46] LABS: ANION GAP 13 (5-15); CALCIUM 9.3 mg/dL (8.6-10.2); CARBON DIOXIDE 29 mEQ/L (20-30); CHLORIDE 98 mEQ/L (98-107); CREATININE 0.6 mg/dL (0.5-0.9); HEMOLYSIS 28; POTASSIUM 4.5 mEQ/L (3.4-4.9); SODIUM 140 mEQ/L (135-145)
[2016-09-12 08:00] VITALS: BP 136/57
[2016-09-12] MEDS: Heparin 5000 units/ml inj SUBQ SCH ×2 (10:21→21:02)
[2016-09-12] MEDS: BuPROPion 75mg Tab ORAL SCH ×2 (10:25→17:17)
[2016-09-12] MEDS: Venlafaxine XR 75mg cap ORAL SCH (10:26)
[2016-09-12 12:30] VITALS: BP 133/68
--- NOTE | 2016-09-12 17:05 | Diagnostic Imaging Report ---
Indications: Low back pain and lower extremity weakness for 5 days Technique: Sagittal STIR, sagittal and axial T1 weighted fast spin-echo, coronal, sagittal, and axial T2 weighted fast spin echo sequences of the lumbar spine were performed without IV gadolinium administration. Findings: Comparison: CT lumbar spine 09/08/16 The L1-2 disc decreased in height and signal. Circumferential annular bulge with superimposed broad-based protrusion right lateral margin. Facet joints and ligamenta flava mildly hypertrophied. Spinal canalnormal caliber. Lateral recesses and neural foramina mildly narrowed, right greater than left.. The L2-3 disc decreased in height and signal. Circumferential annular bulge with marginal osteophyte formation most prominent at left lateral margin. 7 mm leftward subluxation of L2 on L3.. Facet joints moderately, ligaments mildly hypertrophied. . Spinal canalnarrowed to 8 mm AP diameter. Lateral recesses, right neural foramen moderately narrowed. Left neural foramen mildly narrowed.. The L3-4 disc decreased in height and signal. Circumferential annular bulge with marginal osteophyte formation, most prominent at left lateral margin. Facet joints moderately, ligaments mildly hypertrophied. are unremarkable. Spinal canal, lateral recesses, right neural foramen normal caliber. Left neural foramen mildly narrowed. . The L4-L5 disc is normal in height, decreased signal. Circumferential annular bulge with mild marginal osteophyte formation. 6 mm right lateral subluxation of L4 on L5.. Facet joints and ligamenta flava moderately hypertrophied. Spinal canal, right lateral recess and neural foramen normal caliber. Left lateral recess and neural foramen mildly narrowed.. The L5-S1 disc is normal in height, decreased signal. Circumferential annular bulge with marginal osteophyte formation at L5 subluxed anteriorly on S1 by 7 mm.. Facet joints moderately hypertrophied. Ligaments unremarkable. are unremarkable. Spinal canal, left lateral recess normal caliber. Right lateral recess, bilateral neural foramina mildly narrowed. . Spinal cord ends at T12-L1. Conus medullaris, cauda equina, remainder of thecal sac contents intrinsically unremarkable. No intradural or extradural masses or fluid collections are demonstrated. Moderate S-shaped scoliosis is present. The lumbar vertebrae are normal in configuration and marrow signal characteristics , aside from degenerative changes described above. No fracture, lytic destruction, or other acute process is demonstrated. Paraspinous soft tissues are unremarkable. IMPRESSION: Masters lumbar degenerative disc disease, facet and ligamentous hypertrophy as described in detail level by level above. Associated multilevel grade 1 spondylolisthesis, likely in part due to scoliosis Moderate spinal stenosis at L2-3 Multilevel lateral recess and neural foraminal narrowing as described. Impingement upon one or more nerve roots not excludable. Correlate clinically.
--- NOTE | 2016-09-12 17:06 | Cardiology Report ---
APPROVED REPORT EKG Measurement Heart [id number] Normal sinus rhythm Possible Left atrial enlargement Cannot rule out Anterior infarct, age undetermined Abnormal ECG
--- NOTE | 2016-09-12 18:11 | Internal Med Progress Note ---
Subjective Date of Service: Sep 12, 2016 Physician Name Prescott,Omid Attending Physician Ez Christianson MD Current Medications Medications (Trade) Dose Ordered Sig/Digna Route PRN Reason Start Time Stop Time Status Last Admin Dose Admin Acetaminophen (Tylenol) 650 mg Q4H PRN ORAL T>100.5 09/08/16 15:00 10/08/16 14:59 Al Hydroxide/Mg Hydroxide (Mylanta II) 30 ml Q6H PRN ORAL dyspepsia 09/08/16 15:00 10/08/16 14:59 Bupropion HCl (Wellbutrin) 75 mg BID ORAL 09/08/16 18:00 10/08/16 17:59 09/12/16 17:17 Carbidopa/Levodopa (Sinemet 25/100) 1 ea FIVE TIMES A DAY ORAL 09/08/16 16:00 10/08/16 15:59 09/12/16 17:17 Carbidopa/Levodopa (Sinemet CR 50/ 200) 1 ea DAILY@2100 ORAL 09/08/16 21:00 10/08/16 20:59 09/11/16 20:23 Dextrose (Dextrose 50%) STAT PRN IV Hypoglycemia 09/08/16 15:00 10/08/16 14:59 Gabapentin (Neurontin) 100 mg THREE TIMES A DAY ORAL 09/09/16 18:00 10/09/16 17:59 09/12/16 17:17 Heparin Sodium (Porcine) (Heparin 5000 units/ml) 5,000 units EVERY 12 HOURS SUBQ 09/08/16 21:00 10/08/16 20:59 09/12/16 10:21 Latanoprost (Xalatan) 1 drop QHS BOTH EYES 09/11/16 21:00 10/11/16 20:59 09/11/16 20:24 Lorazepam (Ativan 2mg/ml 1ml) 0.5 mg Q4H PRN IV For Anxiety 09/08/16 15:00 09/15/16 14:59 Morphine Sulfate (MS Contin) 15 mg Q12HR@0600,1800 ORAL 09/09/16 18:00 09/16/16 17:59 09/12/16 17:22 Morphine Sulfate (Morphine Sulfate) 2 mg Q4H PRN IVP For Pain 4-09/08/16 15:00 09/15/16 14:59 09/09/16 13:10 Morphine Sulfate (Morphine Sulfate) 4 mg Q4H PRN IVP For Pain 7-10 09/09/16 15:30 09/16/16 15:29 09/12/16 10:25 Ondansetron HCl (Zofran) 4 mg Q6H PRN IVP Nausea & Vomiting 09/08/16 15:00 10/08/16 14:59 Polyethylene Glycol (Miralax) 17 gm HSPRN PRN ORAL Constipation 09/08/16 21:00 10/08/16 20:59 Venlafaxine HCl (Effexor-XR) 75 mg DAILY ORAL 09/10/16 09:00 10/10/16 08:59 09/12/16 10:26 Zolpidem Tartrate (Ambien) 5 mg HSPRN PRN ORAL Insomnia 09/08/16 21:00 10/08/16 20:59 09/09/16 22:21 Allergies: Coded Allergies: No Known Allergies (Unverified , 09/08/16) ROS Limited/Unobtainable: No Constitutional: Reports: no symptoms HEENT: Reports: no symptoms Cardiovascular: Reports: no symptoms Respiratory: Reports: no symptoms Gastrointestinal/Abdominal: Reports: no symptoms Genitourinary: Reports: no symptoms Neurologic/Psychiatric: Reports: no symptoms Subjective 76 YO F admitted with back and hip pain; S/P fall. Multiple factures. Cover for Ros Lamb-Dr Christianson. Objective Last Vital Signs Date Time Temp Pulse Resp B/P Pulse Ox O2 Delivery O2 Flow Rate FiO2 09/12/16 12:30 98.1 83 20 133/68 97 Room Air Laboratory Tests Test 09/12/16 05:00 White Blood Count 6.7 K/UL (4.8-10.8) Red Blood Count 4.74 M/UL (4.20-5.40) Hemoglobin 15.0 G/DL (12.0-16.0) Hematocrit 46.9 % (37.0-47.0) Mean Corpuscular Volume 99 FL (80-99) Mean Corpuscular Hemoglobin 31.7 PG (27.0-31.0) H Mean Corpuscular Hemoglobin Concent 32.1 G/DL (32.0-36.0) Red Cell Distribution Width 11.9 % (11.6-14.8) Platelet Count 292 K/UL (150-450) Mean Platelet Volume 6.0 FL (6.5-10.1) L Neutrophils (%) (Auto) 47.3 % (45.0-75.0) Lymphocytes (%) (Auto) 38.4 % (20.0-45.0) Monocytes (%) (Auto) 10.0 % (1.0-10.0) Eosinophils (%) (Auto) 3.3 % (0.0-3.0) H Basophils (%) (Auto) 1.0 % (0.0-2.0) Sodium Level 140 mEQ/L (135-145) Potassium Level 4.5 mEQ/L (3.4-4.9) Chloride Level 98 mEQ/L (98-107) Carbon Dioxide Level 29 mEQ/L (20-30) Anion Gap 13 (5-15) Blood Urea Nitrogen 11 mg/dL (7-23) Creatinine 0.6 mg/dL (0.5-0.9) Estimat Glomerular Filtration Rate mL/min (>60) Glucose Level 106 mg/dL (74-106) Calcium Level 9.3 mg/dL (8.6-10.2) Intake and Output 09/11/16 09/12/16 19:00 07:00 Intake Total 264 ml 480 ml Output Total 800 ml 800 ml Balance -536 ml -320 ml Intake Oral 264 ml 480 ml Output Urine Total 800 ml 800 ml # Voids 1 Objective General: alert, cooperative, no distress, appears stated age Head: normocephalic, without obvious abnormality, atraumatic Eyes: conjunctivae/corneas clear. PERRL, EOM's intact Throat: lips, mucosa, and tongue normal. MMM Neck: supple, symmetrical, trachea midline, and no JVD Lungs: clear to auscultation bilaterally Heart: regular rate and rhythm, S1, S2 normal, no murmur, click, rub or gallop Abdomen: soft, non-tender, non-distended, bowel sounds normal; no masses or organomegaly Extremities: extremities normal, atraumatic, no cyanosis or edema Pulses: 2+ and symmetric Skin: skin color, texture, turgor normal; no rashes or lesions Neurologic: grossly normal, no focal deficits Assessment/Plan Problem List: (1) Lumbar pain (2) Hip pain Assessment & Plan: See ortho note. (3) Parkinson disease Assessment & Plan: Continue sinemet (4) Rib fracture (5) Thoracic spine fracture Assessment & Plan: See ortho note. See spine surgery note. (6) Fracture of lumbar spine Assessment & Plan: See spine consult note. (7) Lumbar stenosis Assessment/Plan Discharge planning: jail fac vs home with home health OMID PRESCOTT Sep 12, 2016 18:11
[2016-09-12] MEDS: Morphine Sulfate 2mg/ml Inj IVP PRN (19:10)
[2016-09-12 20:00] VITALS: BP 147/76
[2016-09-13 04:00] VITALS: BP 111/56
[2016-09-13 04:27] LABS: BASOPHILS % (AUTO) 1.1 % (0.0-2.0); EOSINOPHILS % (AUTO) 2.3 % (0.0-3.0); MEAN CORPUSCULAR HEMOGLOBIN 32.1 PG (27.0-31.0); MEAN CORPUSCULAR HGB CONC 32.4 G/DL (32.0-36.0); MEAN CORPUSCULAR VOLUME 99 FL (80-99); MONOCYTES % (AUTO) 7.7 % (1.0-10.0); NEUTROPHILS % (AUTO) 55.9 % (45.0-75.0); PLATELET COUNT 291 K/UL (150-450); RED BLOOD COUNT 4.58 M/UL (4.20-5.40); RED CELL DISTRIBUTION WIDTH 12.4 % (11.6-14.8); WHITE BLOOD COUNT 7.6 K/UL (4.8-10.8)
[2016-09-13 04:41] LABS: ANION GAP 12 (5-15); CALCIUM 9.2 mg/dL (8.6-10.2); CARBON DIOXIDE 29 mEQ/L (20-30); CHLORIDE 100 mEQ/L (98-107); CREATININE 0.6 mg/dL (0.5-0.9); HEMOLYSIS 5; POTASSIUM 4.1 mEQ/L (3.4-4.9); SODIUM 141 mEQ/L (135-145)
[2016-09-13] MEDS: MS Contin 15mg tab ORAL SCH ×2 (06:13→18:00)
[2016-09-13] MEDS: Sinemet 25/100 tab ORAL SCH ×4 (06:14→18:00)
[2016-09-13 08:00] VITALS: BP 148/84
[2016-09-13] MEDS: BuPROPion 75mg Tab ORAL SCH ×2 (08:28→18:00)
[2016-09-13] MEDS: Heparin 5000 units/ml inj SUBQ SCH (08:29)
[2016-09-13] MEDS: Venlafaxine XR 75mg cap ORAL SCH (08:30)
[2016-09-13] MEDS: Morphine Sulfate 4mg/ml Inj IVP PRN (08:31)
--- NOTE | 2016-09-13 09:24 | Orthopedic Spine Progress Note ---
Ortho Spine - Progress Note Subjective Symptoms: unchanged Additional Comments: Co back pain Objective Vital Signs: Last 24 Hour Vital Signs Date Time Temp Pulse Resp B/P Pulse Ox O2 Delivery O2 Flow Rate FiO2 09/13/16 08:00 97.7 90 20 148/84 94 Room Air 09/13/16 04:00 98.6 80 20 111/56 94 Room Air 09/12/16 20:00 97.7 91 20 147/76 94 Room Air 09/12/16 12:30 98.1 83 20 133/68 97 Room Air 09/12/16 10:55 97.7 I&O: Intake and Output 09/12/16 09/13/16 19:00 07:00 Intake Total 780 ml 240 ml Balance 780 ml 240 ml Intake Oral 780 ml 240 ml # Voids 1 3 Neuro Status: normal Additional Comments: MRI L spine: The L1-2 disc decreased in height and signal. Circumferential annular bulge with superimposed broad-based protrusion right lateral margin. Facet joints and ligamenta flava mildly hypertrophied. Spinal canalnormal caliber. Lateral recesses and neural foramina mildly narrowed, right greater than left.. The L2-3 disc decreased in height and signal. Circumferential annular bulge with marginal osteophyte formation most prominent at left lateral margin. 7 mm leftward subluxation of L2 on L3.. Facet joints moderately, ligaments mildly hypertrophied. . Spinal canalnarrowed to 8 mm AP diameter. Lateral recesses, right neural foramen moderately narrowed. Left neural foramen mildly narrowed.. The L3-4 disc decreased in height and signal. Circumferential annular bulge with marginal osteophyte formation, most prominent at left lateral margin. Facet joints moderately, ligaments mildly hypertrophied. are unremarkable. Spinal canal, lateral recesses, right neural foramen normal caliber. Left neural foramen mildly narrowed. . The L4-L5 disc is normal in height, decreased signal. Circumferential annular bulge with mild marginal osteophyte formation. 6 mm right lateral subluxation of L4 on L5.. Facet joints and ligamenta flava moderately hypertrophied. Spinal canal, right lateral recess and neural foramen normal caliber. Left lateral recess and neural foramen mildly narrowed.. The L5-S1 disc is normal in height, decreased signal. Circumferential annular bulge with marginal osteophyte formation at L5 subluxed anteriorly on S1 by 7 mm.. Facet joints moderately hypertrophied. Ligaments unremarkable. are unremarkable. Spinal canal, left lateral recess normal caliber. Right lateral recess, bilateral neural foramina mildly narrowed. . Spinal cord ends at T12-L1. Conus medullaris, cauda equina, remainder of thecal sac contents intrinsically unremarkable. No intradural or extradural masses or fluid collections are demonstrated. Moderate S-shaped scoliosis is present. The lumbar vertebrae are normal in configuration and marrow signal characteristics , aside from degenerative changes described above. No fracture, lytic destruction, or other acute process is demonstrated. Paraspinous soft tissues are unremarkable. IMPRESSION: Masters lumbar degenerative disc disease, facet and ligamentous hypertrophy as described in detail level by level above. Associated multilevel grade 1 spondylolisthesis, likely in part due to scoliosis Moderate spinal stenosis at L2-3 Multilevel lateral recess and neural foraminal narrowing as described. Impingement upon one or more nerve roots not excludable. Assessment Post-op Diagnosis: TP Fx, degen scoliosis Plan Plan: PT, pain management Additional Comments: Stable fx. no evidence of ligamentous disruption. no bracing required. PT and Placement (SNF, ARU, or home) ok per primary team. CHRISTEN MARINO Sep 13, 2016 09:24
[2016-09-13 12:00] VITALS: BP 119/69
[2016-09-13] MEDS ORDERED: MS CONTIN15 MG ORAL (14:45)
[2016-09-13] MEDS ORDERED: XALATAN2.5 ML BOTH EYES (14:45)
[2016-09-13] MEDS ORDERED: GABAPENTIN100 MG ORAL (14:45)
[2016-09-13] MEDS ORDERED: HEPARIN SO5000 UNIT2 SUBQ (14:45)
[2016-09-13] MEDS ORDERED: ACETAMINOPHEN325 M1 ORAL (14:45)
[2016-09-13] MEDS ORDERED: OXYCODONE HCL5 MG ORAL (14:45)
--- NOTE | 2016-09-13 14:47 | Internal Med Progress Note ---
Subjective Physician Name Ez Christianson Attending Physician Ez Christianson MD Current Medications Medications (Trade) Dose Ordered Sig/Digna Route PRN Reason Start Time Stop Time Status Last Admin Dose Admin Acetaminophen (Tylenol) 650 mg Q4H PRN ORAL T>100.5 09/08/16 15:00 10/08/16 14:59 Al Hydroxide/Mg Hydroxide (Mylanta II) 30 ml Q6H PRN ORAL dyspepsia 09/08/16 15:00 10/08/16 14:59 Bupropion HCl (Wellbutrin) 75 mg BID ORAL 09/08/16 18:00 10/08/16 17:59 09/13/16 08:28 Carbidopa/Levodopa (Sinemet 25/100) 1 ea FIVE TIMES A DAY ORAL 09/08/16 16:00 10/08/16 15:59 09/13/16 13:39 Carbidopa/Levodopa (Sinemet CR 50/ 200) 1 ea DAILY@2100 ORAL 09/08/16 21:00 10/08/16 20:59 09/12/16 20:56 Dextrose (Dextrose 50%) STAT PRN IV Hypoglycemia 09/08/16 15:00 10/08/16 14:59 Gabapentin (Neurontin) 100 mg THREE TIMES A DAY ORAL 09/09/16 18:00 10/09/16 17:59 09/13/16 13:39 Heparin Sodium (Porcine) (Heparin 5000 units/ml) 5,000 units EVERY 12 HOURS SUBQ 09/08/16 21:00 10/08/16 20:59 09/13/16 08:29 Latanoprost (Xalatan) 1 drop QHS BOTH EYES 09/11/16 21:00 10/11/16 20:59 09/12/16 20:56 Lorazepam (Ativan 2mg/ml 1ml) 0.5 mg Q4H PRN IV For Anxiety 09/08/16 15:00 09/15/16 14:59 Morphine Sulfate (MS Contin) 15 mg Q12HR@0600,1800 ORAL 09/09/16 18:00 09/16/16 17:59 09/13/16 06:13 Morphine Sulfate (Morphine Sulfate) 2 mg Q4H PRN IVP For Pain 4-09/08/16 15:00 09/15/16 14:59 09/12/16 19:10 Morphine Sulfate (Morphine Sulfate) 4 mg Q4H PRN IVP For Pain 7-10 09/09/16 15:30 09/16/16 15:29 09/13/16 08:31 Ondansetron HCl (Zofran) 4 mg Q6H PRN IVP Nausea & Vomiting 09/08/16 15:00 10/08/16 14:59 Polyethylene Glycol (Miralax) 17 gm HSPRN PRN ORAL Constipation 09/08/16 21:00 10/08/16 20:59 Venlafaxine HCl (Effexor-XR) 75 mg DAILY ORAL 09/10/16 09:00 10/10/16 08:59 09/13/16 08:30 Zolpidem Tartrate (Ambien) 5 mg HSPRN PRN ORAL Insomnia 09/08/16 21:00 10/08/16 20:59 09/09/16 22:21 Allergies: Coded Allergies: No Known Allergies (Unverified , 09/08/16) Subjective awake, alert, responsive, less back pain. Objective Last Vital Signs Date Time Temp Pulse Resp B/P Pulse Ox O2 Delivery O2 Flow Rate FiO2 09/13/16 12:00 97.9 82 20 119/69 95 Room Air Laboratory Tests Test 09/13/16 03:10 White Blood Count 7.6 K/UL (4.8-10.8) Red Blood Count 4.58 M/UL (4.20-5.40) Hemoglobin 14.7 G/DL (12.0-16.0) Hematocrit 45.4 % (37.0-47.0) Mean Corpuscular Volume 99 FL (80-99) Mean Corpuscular Hemoglobin 32.1 PG (27.0-31.0) H Mean Corpuscular Hemoglobin Concent 32.4 G/DL (32.0-36.0) Red Cell Distribution Width 12.4 % (11.6-14.8) Platelet Count 291 K/UL (150-450) Mean Platelet Volume 6.0 FL (6.5-10.1) L Neutrophils (%) (Auto) 55.9 % (45.0-75.0) Lymphocytes (%) (Auto) 33.0 % (20.0-45.0) Monocytes (%) (Auto) 7.7 % (1.0-10.0) Eosinophils (%) (Auto) 2.3 % (0.0-3.0) Basophils (%) (Auto) 1.1 % (0.0-2.0) Sodium Level 141 mEQ/L (135-145) Potassium Level 4.1 mEQ/L (3.4-4.9) Chloride Level 100 mEQ/L (98-107) Carbon Dioxide Level 29 mEQ/L (20-30) Anion Gap 12 (5-15) Blood Urea Nitrogen 12 mg/dL (7-23) Creatinine 0.6 mg/dL (0.5-0.9) Estimat Glomerular Filtration Rate mL/min (>60) Glucose Level 117 mg/dL (74-106) H Calcium Level 9.2 mg/dL (8.6-10.2) Intake and Output 09/12/16 09/13/16 19:00 07:00 Intake Total 780 ml 240 ml Balance 780 ml 240 ml Intake Oral 780 ml 240 ml # Voids 1 3 Objective Physical Exam General: No acute distress, awake and alert HEENT: NCAT, sclera anicteric, PERRL, EOMI. Neck: Supple, no significant jugular venous distention, Lungs: Fair inspiratory effort, clear to auscultation bilaterally, no Wheeze or Rales. Heart: Regular rate and rhythm, normal S1/S2, no murmurs Abdomen: soft, nontender, nondistended. Normoactive bowel sounds. / Rectal: Refused and deferred. Extremities: No Cyanosis , clubbing or edema. Neuro: A&O x 3, Able to move all extremities.. Skin: warm, no rashes or lesions Psych: Normal mood and affect Assessment/Plan Assessment/Plan 1. Fall with back pain s/p Lumbar 1 and 2 transverse process fracture and T12 and L3 transition process fracture. 2. Right twelfth rib fracture. 3. Parkinson disease. TREATMENT: Orthopedic consultation has been obtained with Dr. Floyd Tellez. Spine consultation has been obtained with Dr. Grossman. Pain medication DVT prophylaxis with Heparin SQ Ez Christianson MD Sep 13, 2016 14:47
[2016-09-13 16:00] VITALS: BP 130/72
--- NOTE | 2016-09-14 19:09 | Discharge Summary ---
Discharge Summary Hospital Course Date of Admission Sep 08, 2016 at 11:29 Date of Discharge Sep 13, 2016 at 20:22 Admitting Diagnosis multiple fx of l-spine,t-spine HPI Michele Monroy is a 76 year old female who was admitted on Sep 08, 2016 at 11:29 for Multiple Fracture Of Lumbar Spine,Thoracic Spine Hospital Course [id number] Discharge Discharge Disposition Patient was discharged to SNF/Subacute Facility(03) Discharge Diagnoses: Tessa Sutton NP Sep 14, 2016 19:09
--- NOTE | 2016-09-15 03:47 | Discharge Summary 2 SIG ---
DATE OF ADMISSION: 09/08/2016 DATE OF DISCHARGE: 09/13/2016 CONSULTANTS: 1. Yong Grossman M.D. 2. Floyd Tellez M.D. 3. Bam Rodriguez M.D. BRIEF HOSPITAL COURSE: The patient is a 76-year-old female who presented to ED complaining of back pain and hip pain. The patient has history of Parkinson disorder and has history of frequent falls. The patient while getting off the toilet apparently struck her right hip and low back. On evaluation at ED, CT of the lumbar spine showed positive acute nondisplaced right posterior 12th rib fracture acute L1-L2 transverse process fracture and acute T12 and L3 transposition of transition process fracture and multilevel degenerative changes. She was admitted for inpatient care. Dr. Tellez was consulted and recommended physical therapy and pain management. Dr. Grossman was also consulted. MRI of the spine was done, showed matthews lumbar degenerative disk disease grade 1 spondylolisthesis, moderate spinal stenosis at L2-L3. The fracture was assessed to be stable with no evidence of ligamentous disruption. No bracing required. Also recommended physical therapy and placement to senior living. She was given pain management and DVT prophylaxis with subcutaneous heparin and was eventually discharged to [facility]. FINAL DIAGNOSES: 1. Fall with back pain with lumbar with L1 and L2 transverse process fracture and T12 and L3 transition process fracture. 2. Right 12th rib fracture. 3. Parkinson disease. 4. Lumbar stenosis. Ez Christianson M.D. I have been assigned to dictate discharge summary on this account and I was not involved in the patient's management. Tessa Sutton N.P. DR: PABLO JOB#: [id number] CC:
== END 2016-09-13 20:22 | DRG 552 ==
LOC: EDBD 08:12 → EMR 08:37 → EDBEDREQ 10:50 → 3E 11:29 → EDBEDREQ 12:13
DX: S32.019A Unspecified fracture of first lumbar vertebra, initial encounter for closed fracture (principal); S22.089A Unspecified fracture of T11-T12 vertebra, initial encounter for closed fracture; G20 Parkinson's disease; G62.9 Polyneuropathy, unspecified; M41.80 Other forms of scoliosis, site unspecified; S22.31XA Fracture of one rib, right side, initial encounter for closed fracture; S32.029A Unspecified fracture of second lumbar vertebra, initial encounter for closed fracture; S32.039A Unspecified fracture of third lumbar vertebra, initial encounter for closed fracture; W18.11XA Fall from or off toilet without subsequent striking against object, initial encounter; Y92.002 Bathroom of unspecified non-institutional (private) residence as the place of occurrence of the external cause; M48.06 Spinal stenosis, lumbar region; Z91.81 History of falling; Z85.118 Personal history of other malignant neoplasm of bronchus and lung; Z90.2 Acquired absence of lung [part of]; M47.896 Other spondylosis, lumbar region
CPT/HCPCS: 36415; 71010; 72131; 72148; 72192; 80048; 80053; 82550; 82553; 84484; 85025; 85610; 85730; 93005